=== PATIENT | male | born 1950 | race Caucasian/White ===

== ENCOUNTER 2024-03-24 06:17 | Inpatient (IN) | payer MEDICARE, OTHER ==
[~2024-03-24] VITALS: Ht 182.9 cm; Wt 90.7 kg
[2024-03-24] MEDS ORDERED: VANCOMYCIN 1 GM VIAL ONE (06:55)
[2024-03-24] MEDS ORDERED: ANESTHESIA TRAY IN PYXIS 1 EA TRAY MC ONE (06:55)
[2024-03-24] MEDS ORDERED: dexaMETHasone SOD PHOSPHATE 2 ML ONE (06:55)
[2024-03-24] MEDS ORDERED: LIDOCAINE 2%-EPI 1:100,000 30 ML VIAL ONE (06:55)
[2024-03-24] MEDS ORDERED: MIDAZOLAM HCL 2 MG/2ML VIAL ONE (07:44)
[2024-03-24] MEDS ORDERED: OXYMETAZOLINE HCL NASAL SPRAY 30 ML BOTTLE NS ONE (07:44)
[2024-03-24] MEDS ORDERED: FENTANYL PF 100MCG/2ML AMPUL ONE (07:44)
[2024-03-24] MEDS ORDERED: LABETALOL HCL IV 100MG VIAL ONE (08:22)
[2024-03-24] MEDS ORDERED: TRAM50TA2 PO (11:00)
[2024-03-24] MEDS ORDERED: AMOX1TAB16 PO (11:00)
[2024-03-24] MEDS ORDERED: Z GUARD REMEDY 4 OZ OINT TP PRN (11:00)
[2024-03-24] MEDS ORDERED: LOSA50TA39 PO (11:00)
[2024-03-24] MEDS ORDERED: ONDANSETRON HCL/PF 4 MG/2 ML VIAL IVP PRN (11:00)
[2024-03-24] MEDS ORDERED: ACETAMINOPHEN 325 MG TABLET PO PRN (11:00)
[2024-03-24] MEDS: IV NS 0.9% 1,000 ML BAG IV PRN (12:06)
[2024-03-24] MEDS: HYDROMORPHONE 1 MG/1 ML DISP.SYRIN IV PRN (12:10)
[2024-03-24] MEDS ORDERED: ONDANSETRON HCL/PF 4 MG/2 ML VIAL IV PRN (12:30)
[2024-03-24 16:00] VITALS: BP 163/101; TEMP 98.8; O2SAT 95
[2024-03-24] MEDS ORDERED: TRAMADOL HCL 50 MG TABLET PO PRN (16:00)
[2024-03-24] MEDS: AMOX/CLAVULANATE 875 MG TABLET PO SCH (17:16)
[2024-03-24 20:00] VITALS: BP 155/97; TEMP 97.3; O2SAT 96
[2024-03-24] MEDS: VANCOMYCIN 1 GM in IV D5W 250ml IV SCH (20:09)
[2024-03-24] MEDS: ACETAMINOPHEN 325 MG TABLET PO PRN (23:33)
[2024-03-25 06:45] LABS: BASOPHILS % (AUTO) 0.2 % (0.0-2.0); EOSINOPHILS # (AUTO) 0.1 K/uL (0.0-0.7); EOSINOPHILS % (AUTO) 0.8 % (0.0-6.0); HEMATOCRIT 37 % (39-51); HEMOGLOBIN 12.5 g/dL (13.5-17.5); LYMPHOCYTES # (AUTO) 1.3 K/uL (0.8-4.8); LYMPHOCYTES % (AUTO) 14.7 % (20.0-44.0); MEAN CORPUSCULAR HEMOGLOBIN 30 PG (26.0-33.0); MEAN CORPUSCULAR HGB CONC 34 g/dl (31.0-36.0); MEAN CORPUSCULAR VOLUME 88 fL (80-96); MONOCYTES # (AUTO) 0.9 K/uL (0.1-1.30); MONOCYTES % (AUTO) 9.5 % (2.0-12.0); NEUTROPHILS # (AUTO) 6.7 K/uL (1.8-8.9); NEUTROPHILS % (AUTO) 74.8 % (43.0-81.0); PLATELET COUNT (AUTO) 172 K/uL (150-450); RED BLOOD CELL COUNT(AUTO) 4.19 MIL/uL (4.5-6.0); RED CELL DISTRIBUTION WIDTH 13.9 % (11.5-15.0)
[2024-03-25 07:03] LABS: CALCIUM, SERUM 8.5 mg/dL (8.5-10.1); MAGNESIUM 1.7 mg/dL (1.8-2.4); PHOSPHORUS 4.1 mg/dL (2.5-4.9); POTASSIUM 3.7 mmol/L (3.5-5.1)
[2024-03-25 07:30] VITALS: BP 157/92; TEMP 99.1; O2SAT 96
[2024-03-25 08:24] VITALS: BP 157/92
[2024-03-25] MEDS: LOSARTAN POTASSIUM 50 MG TABLET PO SCH (08:24)
== END 2024-03-25 12:30 | disposition home or self-care (01) | DRG 141 ==
LOC: EDBD → DS 06:17 → MED 10:19
PROVIDERS: ADMIT Nurse Practitioner Acute Care; ATTEND Nurse Practitioner Acute Care
PROC: 0NSR04Z Reposition Maxilla with Internal Fixation Device, Open Approach (ICD-10-PCS; principal; 2024-03-24)
PROC: 0N5R0ZZ Destruction of Maxilla, Open Approach (ICD-10-PCS; 2024-03-24)
PROC: 0WB30ZX Excision of Oral Cavity and Throat, Open Approach, Diagnostic (ICD-10-PCS; 2024-03-24)
PROC: 0NUR07Z Supplement Maxilla with Autologous Tissue Substitute, Open Approach (ICD-10-PCS; 2024-03-24)
PROC: 0NUR0JZ Supplement Maxilla with Synthetic Substitute, Open Approach (ICD-10-PCS; 2024-03-24)
DX: S02.40DA Maxillary fracture, left side, initial encounter for closed fracture (principal); M87.9 Osteonecrosis, unspecified; M27.2 Inflammatory conditions of jaws; E03.9 Hypothyroidism, unspecified; X58.XXXA Exposure to other specified factors, initial encounter; Y92.9 Unspecified place or not applicable; J32.0 Chronic maxillary sinusitis; M27.40 Unspecified cyst of jaw; D16.5 Benign neoplasm of lower jaw bone
CPT/HCPCS: 36415; 80048-TC; 83735-TC; 84100-TC; 85025-TC; A4223; A4338; C1713; C1781; G0378; J1100; J1171; J2250; J2405; J2704; J3010; J3370; J3490; J7030; J7060